=== PATIENT | female | born 1950 | race Caucasian/White ===

== ENCOUNTER → 2017-06-22 | Outpatient (CLI) | payer MEDICARE ==
[~2017-06-22] MED LIST: IOPAMIDOL 370 MG/ML 200 ML INFUS..BTL INJ ONE; LISINOPRIL2.5 MG PO; SODIUM CHLORIDE 0.9% 50ML 50 ML ONE
[2017-06-22 16:27] LABS: BLOOD UREA NITROGEN 18 mg/dL (7-26); BUN/CREATININE RATIO 25 (6-25); CREATININE, SERUM 0.73 mg/dL (0.57-1.11); EST GLOMERULAR FILTRATION RATE > 60 ML/MIN (60-)
--- NOTE | 2017-06-22 18:02 | Diagnostic Imaging Report ---
EXAM: CT Abdomen and Pelvis WITHOUT and WITH contrast INDICATION: \[id number] \[id number] COMPARISON: MRA/MRV dated 07/24/2016. TECHNIQUE: Abdomen and pelvis were scanned utilizing a multidetector helical scanner from the lung base to the pubic symphysis before and after administration of IV contrast. Coronal and sagittal reformations were obtained. Renal mass protocol was performed. Scan was performed pre-, nephrographic, and 4 minute delayed phase. IV CONTRAST: 100 mL of Isovue-370 ORAL CONTRAST: Water COMPLICATIONS: None RADIATION DOSE: Total DLP: 1281.35 mGy*cm Estimated effective dose: (DLP x 0.015 x size factor) mSv CTDIvol has been reviewed. It is below the limits set by the Radiation Protocol Committee (RPC). FINDINGS: LINES and TUBES: Distal leads of cardiac device are visualized terminating in right atrium and right intraconal. LOWER THORAX: Unremarkable. Lingular and left base atelectasis/scarring. HEPATOBILIARY: Redemonstration of 3.5 x 3.2 cm right hepatic lobe cyst. No biliary ductal dilation. GALLBLADDER: Multiple small dependent gallstones. No wall thickening. SPLEEN: No splenomegaly. PANCREAS: No focal masses or ductal dilatation. ADRENALS: No adrenal nodules KIDNEYS/URETERS: Approximately 9.9 x 10.3 x 8.8 cm right renal mass, demonstrating heterogeneous enhancement and central necrosis. No hydronephrosis. Left kidney is unremarkable. GI TRACT: No abnormal distention, wall thickening, or evidence of bowel obstruction. Appendix is normal. PELVIC ORGANS/BLADDER: Uterus and adnexa are unremarkable on CT assessment. Bladder is unremarkable. LYMPH NODES: 0.9 cm aortocaval lymph node (series 4, image 101). There are additional indeterminate subcentimeter retroperitoneal lymph nodes. VESSELS: Single renal arteries bilaterally. Renal veins appear patent. No evidence of vascular invasion. PERITONEUM / RETROPERITONEUM: No free air or fluid. BONES: Degenerative changes of spine. SOFT TISSUES: Unremarkable. IMPRESSION: 1. Redemonstration of right renal mass, representing renal cell carcinoma, not significantly changed in size when compared to prior MRI. 2. 0.9 cm aortocaval lymph node is suspicious for metastatic involvement. Recommend attention on follow-up examination. 3. Cholelithiasis without evidence of cholecystitis. Signed by: Dr. Yosi Garcia MD on 06/22/2017 5:58 PM
== END ==
LOC: CT 15:34
PROVIDERS: ATTEND Urology
DX: D41.00 Neoplasm of uncertain behavior of unspecified kidney (principal)
CPT/HCPCS: 36415; 74178; 82565; 84520; Q9967

== ENCOUNTER → 2018-12-20 | Outpatient (CLI) | payer MEDICARE ==
[~2018-12-20] MED LIST changes: -IOPAMIDOL 370 MG/ML 200 ML INFUS..BTL INJ ONE; +METOPROLOL SUCC25 MG; -SODIUM CHLORIDE 0.9% 50ML 50 ML ONE; +ULTRAM50 MG PO
--- NOTE | 2018-12-20 16:36 | Diagnostic Imaging Report ---
EXAM: Renal Ultrasound INDICATION: ^NEOPLASM OF RIGHT KIDNEY COMPARISON: None TECHNIQUE: Transverse and longitudinal images of the kidneys and bladder were obtained. FINDINGS: Right Kidney: Status post right nephrectomy. Left Kidney: Length: 10.5 cm Appearance: Normal echogenicity. Collecting system: No hydronephrosis Stones: None Cyst/Mass: None Bladder: No mass or wall thickening. Left ureteral jet seen. IMPRESSION: Status post right nephrectomy. Normal left kidney and bladder. Signed by: Emili Calabrese MD on 12/20/2018 4:32 PM
== END ==
LOC: US 15:23
PROVIDERS: ATTEND Urology
DX: D41.01 Neoplasm of uncertain behavior of right kidney (principal)
CPT/HCPCS: 76770

== ENCOUNTER → 2019-04-26 | Day surgery (SDC) | payer MEDICARE ==
[2019-04-22 15:50] LABS: BASOPHILS % 0.6 % (0.0-1.0); EOSINOPHILS # (AUTO) 0.2 (0.0-0.4); HEMATOCRIT 44.5 % (34.2-44.1); HEMOGLOBIN 14.5 g/dL (12.0-16.0); LYMPHOCYTES # (AUTO) 2.3 (1.0-3.2); LYMPHOCYTES % 33.8 % (18.0-39.1); MEAN CORPUSCULAR HGB CONC 32.6 g/dL (31-35); MEAN CORPUSCULAR VOLUME 92.1 fL (81-99); MONOCYTES # (AUTO) 0.8 (0.2-0.8); MONOCYTES % 11.6 % (4.4-11.3); NEUTROPHILS # (AUTO) 3.4 (2.1-6.9); NEUTROPHILS % 50.7 % (38.7-80.0); PLATELET COUNT 190 x10e3/uL (140-360); RED BLOOD COUNT 4.83 x10e6/uL (3.6-5.1); RED CELL DISTRIBUTION WIDTH 13.5 % (11.7-14.4)
[2019-04-22 16:23] LABS: ALBUMIN 3.8 g/dL (3.5-5.0); ALBUMIN/GLOBULIN RATIO 1.2 (0.8-2.0); ANION GAP 13.8 mmol/L (8-16); CALCIUM 9.3 mg/dL (8.4-10.2); CREATININE, SERUM 1.05 mg/dL (0.57-1.11); POTASSIUM 3.8 mmol/L (3.5-5.1)
[2019-04-26] VITALS (7 sets, daily range): BP systolic 106–147; BP diastolic 54–76
[~2019-04-26] VITALS: Ht 157.5 cm; Wt 77.1 kg
[~2019-04-26] MED LIST changes: +ALPRAZOLAM 0.5 MG TAB ONE; +ASPIRIN EC81 MG PO; +CAL-MAG COMPLE1 EACH PO; +DIPHENHYDRAMINE HCL 25 MG CAP ONE; +FENTANYL CITRATE/PF 100MCG/2 ML INJ ONE; +FISH OIL 1,0001 EAC2 PO; +HEPARIN SOD/SOD CHLORIDE 2,000 ML ONE; +IOPAMIDOL 370 MG/ML 200 ML INFUS..BTL INJ ONE; +LIDOCAINE HCL 2% LOCAL 20 ML VIAL ONE; +MIDAZOLAM HCL 2 MG/2 ML VIAL ONE; +SODIUM CHLORIDE 0.9% 1000ML 1,000 ML ONE
--- NOTE | 2019-04-26 19:30 | NUR ---
TR band succesfully removed. DC teaching and radial precautions reviewed. Pt meets DC criteria. right wrist assessed for s/s of complication and presence of hematoma. general skin warm, dry, no discolor, and pulses present. IV removed from left hand. Distal tip appears intact. VS WNL. Pt denies pain, sob, or need at this time. Family at bedside. Review of discharge paperwork and follow up instructions. verbalized understanding. Pt to wheelchair and transported to front of hospital. Transferred to private vehicle under own strength w/o incident with DC paperwork in hand. - cgf
--- NOTE | 2019-04-26 23:28 | Operative Report ---
DATE OF PROCEDURE: 04/26/2019 SURGEON: Zohaib Encarnacion MD PROCEDURE: Cardiac cath. INDICATIONS: Coronary artery disease and angina. PROCEDURES PERFORMED: 1. Left heart catheterization, selective coronary angiography. 2. Deployment of right wrist TR band. COMPLICATIONS: None. RECOMMENDATIONS: Medical therapy. DESCRIPTION OF PROCEDURE: Access obtained in the right radial artery. A 5-Sami sheath was placed. Coronary angiography demonstrated mild coronary artery disease, 20% diffuse luminal stenosis. Excellent flow in all vessels. Right coronary artery is nondominant. No intervention deemed necessary. Right wrist TR band applied. Guide and sheath were removed. The patient was discharged home same day. Zohaib Encarnacion MD KSB/MODL /[id number]
== END | disposition home or self-care (01) ==
LOC: CATH LAB 14:14
PROVIDERS: ATTEND Internal Medicine Interventional Cardiology
DX: I25.118 Atherosclerotic heart disease of native coronary artery with other forms of angina pectoris (principal); I35.0 Nonrheumatic aortic (valve) stenosis; I10 Essential (primary) hypertension; Z01.812 Encounter for preprocedural laboratory examination; Z79.82 Long term (current) use of aspirin; Z68.31 Body mass index [BMI] 31.0-31.9, adult; Z95.0 Presence of cardiac pacemaker; Z95.2 Presence of prosthetic heart valve
CPT/HCPCS: 36415; 80053; 85025; 93454; C1769; C1887; J2001; J2250; J3010; J7030; Q9967; 99152